=== PATIENT | male | born 2000 | race Caucasian/White ===

== ENCOUNTER 2019-06-07 13:36 | Emergency (ER) | payer OTHER, SELFPAY ==
[2019-06-07 13:37] VITALS: BP 123/64; PULSE 62; RESP 17; TEMP 37.1; O2SAT 98; BMI 25.9
[2019-06-07 13:55] VITALS: O2SAT 97
--- NOTE | 2019-06-07 13:59 | RAD_ITS ---
STUDY: X-RAY CHEST REASON FOR EXAM: Male, 19 years old. Cough. Shortness of breath. TECHNIQUE: PA and lateral views of the chest. COMPARISON: None. FINDINGS: The lungs are clear and expanded. There is no demonstrated pleural abnormality. Normal size heart. Normal mediastinum and nathalie. Normal visualized pulmonary arteries. Normal visualized aortic arch and descending thoracic aorta. Normal visualized thoracic spine. Normal visualized ribs, clavicles, and shoulders. There is no demonstrated abnormality of the visualized soft tissue structures of the upper abdomen. RAD/Chest PA and Lateral IMPRESSION: Normal x-ray examination of the chest. Electronically Signed: Jesus Parr MD at 15:29 EDT , Service support ,
--- NOTE | 2019-06-07 14:08 | ED.VISSUMM ---
- ER Visit Summary Date of Service: 06/07/19 Chief Complaint: Cough History of Present Illness: The patient is a 19 M who presents the emergency department with a cough. Patient states he has a history of asthma does not have any daily therapy but does have a rescue albuterol inhaler. He tells me on Saturday he did have sinus congestion little bit of sore throat and cough. The upper respiratory symptoms have improved but the patient states his cough is deep and into his chest he feels like he is wheezing and is producing some sputum. Non-smoker. No fevers. He states that this been several years since he has felt like this. He is a [employer] student. Physical Examination: Afebrile vital signs stable Gen: Well-nourished well-developed Head: Normocephalic atraumatic Eyes: Perrl EOMI ENT: TMs clear turbinate edema moist mucous membranes Neck: Supple no lymphadenopathy no JVD nontender CVS: Regular rate rhythm no murmurs normal S1-S2 Respiratory: No distress bilateral rhonchi and expiratory wheezing chest nontender Abdomen: Soft nontender nondistended normal bowel sounds no masses Back: Nontender Extremity: Nontender no edema Skin: Normal color no rash Neuro: alert orientated ?3 CN II-XII intact normal strength sensation Psych: Normal affect normal mood Test Results: Chest x-rays obtained. Negative for infiltrate Emergency Department Course and Treatment: Patient received a DuoNeb. Patient will be started on prednisone. I will write for a new albuterol MDI. Follow-up with the [facility] if not improving return if worsening Impression: 1. Acute asthmatic bronchitis This note was generated with [employer] dictation software. It may contain incorrect words, spelling, and punctuation that were not noted in review of the chart prior to signing ED Disposition - Plan for ED Patient: Disposition: Home or Assisted Living Instructions: BRONCHITIS with Wheezing (Adult) Prescriptions: Prednisone [Deltasone] 60 mg PO DAILY #15 tab Prescription Printed Albuterol Inhaler [Ventolin Hfa] 2 puff INHALATION Q4H PRN PRN #1 inhaler PRN Reason: Wheezing Prescription Printed [place] [place] [facility] - As Needed
[2019-06-07 14:20] VITALS: PULSE 75; RESP 18
[2019-06-07] MEDS: Ipratropium/Albuterol Sulfate 3 ML AMPUL.NEB INHALATION (14:20)
[2019-06-07 15:00] VITALS: PULSE 64; RESP 16; O2SAT 98
== END 2019-06-07 15:01 | disposition home or self-care (01) ==
PROVIDERS: Emergency Provider Emergency Medicine
DX: J45.909 Unspecified asthma, uncomplicated (principal)
CPT/HCPCS: 71046; 94640; 99282